=== PATIENT | female | born 1985 | race Caucasian/White ===

== ENCOUNTER 2025-07-17 06:33 | Emergency (ER) | payer BC ==
[2025-07-17 07:21] LABS: BHCG - Serum Negative (NEGATIVE); Pregs Control Background? CLEAR/WHITE (CLR/WHITE); Pregs Control Bar Appear? YES (CONTROL BAR)
[2025-07-17 07:25] LABS: #Basophils 0.05 10x3/uL (0.0-0.2); #Eosinophils 0.15 10x3/uL (0.0-0.5); #Monocytes 0.59 10x3/uL (0.0-1.1); #Neutrophils 5.32 10x3/uL (1.5-8.4); %Basophils 0.6 % (0.0-2.0); %Eosinophils 1.9 % (0.0-6.0); %Lymphocytes 21.4 % (18.0-47.0); %Monocytes 7.6 % (0.0-10.0); %Neutrophils 68.2 % (40.0-75.0); Hematocrit 37.0 % (34.9-44.5); Hemoglobin 12.5 g/dL (12.0-15.5); Mean Corpuscular Hemoglobin 30.3 pg (27.0-33.0); Mean Corpuscular Volume 89.6 fL (81.6-98.3); Platelet Count 306 10x3/uL (150-450); Red Blood Cell (RBC) Count 4.13 10x6/uL (3.90-5.03); White Blood Cell (WBC) Count 7.80 10x3/uL (3.5-10.5)
[2025-07-17 07:31] LABS: ALT (SGPT) 50 U/L (Less than 34); AST (SGOT) 47 U/L (11-34); Albumin 3.9 g/dL (3.1-4.5); Alkaline Phosphatase 147 U/L (40-110); Anion Gap 15 mmol/L (10-20); BUN (Urea Nitrogen) 15 mg/dL (7.0-18.7); Bilirubin, Total 0.4 mg/dL (0.3-1.2); Calc. Creatinine Clearance 0 mL/min (70-130); Calcium 8.7 mg/dL (7.8-10.44); Carbon Dioxide 22 mmol/L (22-29); Chloride 109 mmol/L (98-107); Globulin 3.2 g/dL (2.4-3.5); Glucose 110 mg/dL (70-105); Lipase 40 U/L (8-78); Potassium 3.6 mmol/L (3.5-5.1); Sodium 142 mmol/L (136-145)
[2025-07-17] MEDS ORDERED: PROPOFOL 20 ML ONE (08:52)
[2025-07-17] MEDS ORDERED: Bupivacaine/Epinephrine 0.25% 30 ML VIAL ONE (08:52)
[2025-07-17] MEDS ORDERED: Bupivacaine HCl 0.5%/Epinephrine 1:200,000/PF 30 ml Vial ONE (09:27)
[2025-07-17] MEDS ORDERED: Rocuronium Bromide 10 MG/ML (10ML VIAL) ONE (09:43)
[2025-07-17] MEDS ORDERED: SUGAMMADEX SODIUM 200 MG/2 ML VIAL ONE (09:43)
[2025-07-17] MEDS ORDERED: Ondansetron PF 4 MG/2 ML Vial ONE (09:57)
[2025-07-17] MEDS ORDERED: Ketorolac Tromethamine 30 MG (1 mL) VIAL ONE (10:18)
[2025-07-17] MEDS ORDERED: HYDROmorphone 0.5 MG/0.5 ML SYRINGE ONE ×2 (10:56→11:09)
[2025-07-17] MEDS ORDERED: HYDROcodone/Acetaminophen 5/325 mg Tablet ONE (11:35)
== END 2025-07-17 07:56 | disposition admitted as inpatient to this hospital (09) ==
LOC: CSHERS 06:33
PROC: 0FT44ZZ Resection of Gallbladder, Percutaneous Endoscopic Approach (ICD-10-PCS; principal; 2025-07-17)
DX: K80.12 Calculus of gallbladder with acute and chronic cholecystitis without obstruction (principal); F17.200 Nicotine dependence, unspecified, uncomplicated; E66.9 Obesity, unspecified; Z68.36 Body mass index [BMI] 36.0-36.9, adult
CPT/HCPCS: 80053; 83690; 84703; 85025; 88304; 99285; C1889; J0694; J1100; J1171; J1885; J2704; J3010; S2900